=== PATIENT | male | born 1995 | race Caucasian/White ===

== ENCOUNTER 2019-01-16 19:51 | Emergency (ER) | payer OTHER ==
[2019-01-16] MEDS ORDERED: Lidocaine 1% (PF) 30 ML VIAL ONE (20:31)
[2019-01-16] MEDS ORDERED: Adacel (T-DAP) 0.5 ML SYRINGE ONE (21:00)
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
== END 2019-01-16 21:36 | disposition home or self-care (01) ==
LOC: ERS 19:51
DX: S81.812A Laceration without foreign body, left lower leg, initial encounter (principal); F17.220 Nicotine dependence, chewing tobacco, uncomplicated; W22.8XXA Striking against or struck by other objects, initial encounter
CPT/HCPCS: 12002; 90471; 90715; J2001